=== PATIENT | male | born 1995 | race Caucasian/White ===

== ENCOUNTER 2017-07-02 02:13 | Emergency (ER) | payer MEDICAID ==
[~2017-07-02] VITALS: Ht 177.8 cm; Wt 79.2 kg
[2017-07-02] MEDS ORDERED: LORazepam 1MG TABLET PO ONE (03:00)
[2017-07-02] MEDS ORDERED: LORazepam 1MG TABLET ONE (03:24)
[2017-07-02 04:43] VITALS: BP 118/66
== END 2017-07-02 04:45 | disposition home or self-care (01) ==
LOC: ED 02:35
DX: F11.10 Opioid abuse, uncomplicated (principal); F15.10 Other stimulant abuse, uncomplicated
CPT/HCPCS: 99283

== ENCOUNTER 2017-07-23 14:54 | Emergency (ER) | payer MEDICAID ==
[~2017-07-23] VITALS: Ht 177.8 cm; Wt 68.6 kg
[2017-07-23 15:14] VITALS: BP 125/72
== END 2017-07-23 16:07 | disposition home or self-care (01) ==
LOC: ED 16:01
DX: S21.112D Laceration without foreign body of left front wall of thorax without penetration into thoracic cavity, subsequent encounter (principal); F17.210 Nicotine dependence, cigarettes, uncomplicated; X58.XXXD Exposure to other specified factors, subsequent encounter
CPT/HCPCS: 99282

== ENCOUNTER 2017-07-24 15:49 | Emergency (ER) | payer MEDICAID ==
[~2017-07-24] VITALS: Ht 177.8 cm; Wt 69.5 kg
[2017-07-24 15:51] VITALS: BP 133/75
== END 2017-07-24 16:37 | disposition home or self-care (01) ==
LOC: ED 16:24
DX: S21.112D Laceration without foreign body of left front wall of thorax without penetration into thoracic cavity, subsequent encounter (principal)
CPT/HCPCS: 99282

== ENCOUNTER 2017-07-28 18:04 | Emergency (ER) | payer MEDICAID ==
[~2017-07-28] VITALS: Ht 177.8 cm; Wt 73.2 kg
[2017-07-28 18:06] VITALS: BP 125/71
[2017-07-28] MEDS ORDERED: DIPH,PERTUSS(ACELL),TET VAC/PF 0.5 ML IM-VACC ONE ×2 (18:36→19:00)
== END 2017-07-28 18:51 | disposition home or self-care (01) ==
LOC: ED 18:20
DX: S21.119A Laceration without foreign body of unspecified front wall of thorax without penetration into thoracic cavity, initial encounter (principal); W45.8XXA Other foreign body or object entering through skin, initial encounter; Y93.89 Activity, other specified; Y92.89 Other specified places as the place of occurrence of the external cause; Y99.8 Other external cause status
CPT/HCPCS: 90471; 90715

== ENCOUNTER 2017-08-31 02:02 | Emergency (ER) | payer MEDICAID ==
[~2017-08-31] VITALS: Ht 177.8 cm; Wt 70.0 kg
[2017-08-31] MEDS ORDERED: OLAN5TAB3 PO (02:09)
[2017-08-31] MEDS ORDERED: LORazepam 1MG TABLET ONE (02:20)
[2017-08-31] MEDS ORDERED: LORazepam 1MG TABLET PO ONE (02:30)
[2017-08-31 06:02] VITALS: BP 131/74
== END 2017-08-31 09:26 | disposition home or self-care (01) ==
LOC: ED 02:20
DX: F15.10 Other stimulant abuse, uncomplicated (principal); F43.10 Post-traumatic stress disorder, unspecified
CPT/HCPCS: 99283

== ENCOUNTER 2017-11-03 21:11 | Emergency (ER) | payer MEDICAID ==
[~2017-11-03] VITALS: Ht 175.3 cm; Wt 72.3 kg
[~2017-11-03 21:11] MED LIST: OLAN5TAB3 PO
[2017-11-03 21:16] VITALS: BP 112/73
== END 2017-11-03 21:39 | disposition home or self-care (01) ==
LOC: ED 21:33
DX: L25.9 Unspecified contact dermatitis, unspecified cause (principal); F15.10 Other stimulant abuse, uncomplicated; F31.9 Bipolar disorder, unspecified; F43.10 Post-traumatic stress disorder, unspecified; Z59.0 Homelessness
CPT/HCPCS: 99283

== ENCOUNTER 2017-11-19 13:33 | Emergency (ER) | payer MEDICAID ==
[~2017-11-19] VITALS: Ht 177.8 cm; Wt 67.7 kg
[2017-11-19 13:34] VITALS: BP 147/78
[2017-11-19] MEDS ORDERED: BACITRACIN ZINC OINT 500U/GM, 0.9 GM ONE (13:48)
== END 2017-11-19 14:03 | disposition home or self-care (01) ==
LOC: ED 13:50
DX: L03.011 Cellulitis of right finger (principal); F15.129 Other stimulant abuse with intoxication, unspecified; F17.210 Nicotine dependence, cigarettes, uncomplicated
CPT/HCPCS: 99283

== ENCOUNTER 2019-01-10 07:55 | Emergency (ER) | payer MEDICAID ==
[~2019-01-10] VITALS: Ht 175.3 cm; Wt 68.0 kg
[2019-01-10 08:12] VITALS: BP 138/84
[2019-01-10] MEDS ORDERED: LIDOCAINE-MPF 1%, 5ML ONE (08:24)
[2019-01-10] MEDS ORDERED: LIDOCAINE-MPF 1%, 5ML INFIL ONE (08:30)
[2019-01-10] MEDS ORDERED: BACITRACIN ZINC OINT 500U/GM, 0.9 GM ONE (09:02)
--- NOTE | 2019-01-10 09:15 | NUR ---
Patient/Caregiver given discharge instructions and they have confirmed that they understand the instructions. Patient ambulatory with steady gait.
== END 2019-01-10 09:16 | disposition home or self-care (01) ==
LOC: ED 09:00
DX: L03.011 Cellulitis of right finger (principal)
CPT/HCPCS: 10060; 99283

== ENCOUNTER 2019-04-28 16:46 | Emergency (ER) | payer MEDICAID ==
[~2019-04-28] VITALS: Ht 175.3 cm; Wt 70.4 kg
[2019-04-28 16:48] VITALS: BP 103/67
== END 2019-04-28 17:49 | disposition home or self-care (01) ==
LOC: ED 17:43
DX: L03.113 Cellulitis of right upper limb (principal); L03.116 Cellulitis of left lower limb; L03.115 Cellulitis of right lower limb; F32.9 Major depressive disorder, single episode, unspecified; Z72.9 Problem related to lifestyle, unspecified; F17.200 Nicotine dependence, unspecified, uncomplicated; Z59.0 Homelessness
CPT/HCPCS: 99283

== ENCOUNTER 2020-06-18 11:42 | Emergency (ER) | payer MEDICAID ==
[~2020-06-18] VITALS: Ht 175.3 cm; Wt 71.7 kg
[2020-06-18 11:48] VITALS: BP 147/87
[2020-06-18] MEDS ORDERED: KETOROLAC 60 MG/2 ML ONE (12:04)
[2020-06-18] MEDS ORDERED: KETOROLAC 60 MG/2 ML IM ONE (12:30)
== END 2020-06-18 12:58 | disposition home or self-care (01) ==
LOC: ED 12:50
DX: S86.111A Strain of other muscle(s) and tendon(s) of posterior muscle group at lower leg level, right leg, initial encounter (principal); X58.XXXA Exposure to other specified factors, initial encounter; Y93.89 Activity, other specified; Y92.89 Other specified places as the place of occurrence of the external cause; Y99.8 Other external cause status
CPT/HCPCS: 99284

== ENCOUNTER 2020-12-22 07:02 | Emergency (ER) | payer MEDICAID ==
[~2020-12-22] VITALS: Ht 175.3 cm; Wt 68.4 kg
[2020-12-22 07:05] VITALS: BP 135/74
[2020-12-22] MEDS ORDERED: CEFTRIAXONE 1,000 MG IM ONE (07:30)
[2020-12-22] MEDS ORDERED: AZITHROMYCIN 500 MG TABLET PO ONE (07:30)
--- NOTE | 2020-12-22 07:33 | NUR ---
ASSUMED CARE OF PT. PT SITTING IN CHAIR COMFORTABLE, NO REQUEST/QUESTION AT THIS TIME. URINE COLLECTED. PT UPDATED ON POC.
[2020-12-22] MEDS ORDERED: CEFTRIAXONE 1,000 MG ONE (07:47)
[2020-12-22] MEDS ORDERED: AZITHROMYCIN 250 MG TABLET ONE (07:48)
[2020-12-22] MEDS ORDERED: LIDOCAINE-MPF 1%, 5ML ONE (07:56)
[2020-12-22 07:58] LABS: MICROSCOPIC INDICATED
--- NOTE | 2020-12-22 08:16 | NUR ---
PT A&O APPEARS TO BE IN NO DISTRESS. MEDS GIVEN.
== END 2020-12-22 08:30 | disposition home or self-care (01) ==
LOC: ED 07:40
DX: A56.8 Sexually transmitted chlamydial infection of other sites (principal); R30.0 Dysuria
CPT/HCPCS: 81001; 87086; 87491; 87591; 96372; 99283; J0696